=== PATIENT | female | born 1985 | race Caucasian/White ===

== ENCOUNTER → 2018-05-08 | Outpatient (CLI) | payer BC ==
[~2018-05-08] MED LIST: BIOT10004 PO; CALC500T54 PO; CETI10TA16 PO; DICL100G18 TP; FLUT16SP NS; GADOBUTROL 7.5 MMOL/7.5 ML VIAL IV ONE; LAMO100T PO; ONDA4TAB7 PO; VENL75CA6 PO
--- NOTE | 2018-05-08 14:10 | KCIC ---
MRI Brain with and without contrast History: Headache, dizziness, nausea, no episodes of cognitive impairment Technique: Multiplanar, multi sequential pre and postcontrast MR imaging was performed of the brain. Comparison: None Findings: There is no evidence of recent infarct or cytotoxic edema. The ventricles, sulci, and cisterns are within normal limits in size and configuration. There is no significant midline shift, intraaxial mass effect, or focal abnormal extra-axial fluid collection. There is no significant signal abnormality of the brain parenchyma. There is no nodular parenchymal or leptomeningeal enhancement. There is preservation of the major intracranial flow-voids at the skull base. There is mild cerebellar tonsillar ectopia projecting about 4 mm inferior to foramen magnum on the right, not as significant on the left. There is no significant abnormality of the pineal gland or pituitary gland. There is very minimal patchy bilateral ethmoid air cell mucosal thickening. There is mild thickening of the bilateral mastoid air cells. There is preserved marrow signal of the clivus. There are some small foci of signal change of the right parietal scalp, uncertain if complex sebaceous cysts. Impression: 1. There is no significant intracranial abnormality. Electronically signed by: Bayron Carreon MD (05/08/2018 2:07 PM) [email or web address]
== END | disposition home or self-care (01) ==
LOC: KCIC MRI 12:07
PROVIDERS: ATTEND Physician Assistant
DX: R51 Headache (principal); R42 Dizziness and giddiness; R11.0 Nausea; R53.83 Other fatigue; Z87.891 Personal history of nicotine dependence
CPT/HCPCS: 70553; A9585

== ENCOUNTER → 2018-09-10 | Outpatient (CLI) | payer BC ==
[~2018-09-10] MED LIST changes: -GADOBUTROL 7.5 MMOL/7.5 ML VIAL IV ONE
--- NOTE | 2018-09-18 21:48 | EEG ---
DATE OF SERVICE: 09/10/2018 EEG: #[id number] OBJECTIVE: This is a 32-year-old female patient with history of confusional episodes. EEG was requested to help rule out seizure. METHODS: Twenty electrodes were applied according to the international 10-20 electrode placement system. EKG monitoring, hyperventilation, intermittent photic stimulation, monopolar and bipolar montages are routinely utilized. The record was obtained on a digital system with video monitoring. FINDINGS: 1. Background: The patient was recorded in the awake, drowsy, and sleep states. The overall background amplitude is 10-30 microvolts. A posterior dominant rhythm of 8-10 Hz is observed. 2. Abnormalities: No specific epileptiform discharge or electrographic seizure is seen. No focal or diffuse slowing. 3. Activation: Hyperventilation was performed with good efforts and normal response. Intermittent photic stimulation was performed with photic driving. No specific epileptiform discharge or electrographic seizure induced by hyperventilation or intermittent photic stimulation. IMPRESSION: This EEG is a normal study for the awake, drowsy, and sleep states. No focal, lateralizing, specific epileptiform discharge or electrographic seizure is seen. LOPEZ HAINES MD DR: MENA/bushra JOB#: [id number] / [id number]
== END | disposition home or self-care (01) ==
LOC: RT 09:06
PROVIDERS: ATTEND Psychiatry & Neurology Neurology
DX: R41.0 Disorientation, unspecified (principal)
CPT/HCPCS: 95816